=== PATIENT | male | born 1985 | race Caucasian/White ===

== ENCOUNTER 2019-07-05 02:22 | Inpatient (IN) | payer OTHER ==
[~2019-07-05] VITALS: Ht 182.9 cm; Wt 65.8 kg
[~2019-07-05 02:22] MED LIST: HALO2 PO; INSULANPEN SC; Novolog100 UNIT/1 SQ
[2019-07-05] MEDS ORDERED: GABA300 PO (02:40)
[2019-07-05 03:39] LABS: BASOPHILS ABSOLUTE AUTO 0.03 K/mm3 (0.00-0.23); BASOPHILS PERCENT AUTO 0 % (0-2); EOSINOPHILS ABSOLUTE AUTO 0.06 K/mm3 (0.00-0.68); EOSINOPHILS PERCENT AUTO 1 % (0-6); Hematocrit 32.2 % (37.0-53.0); Hemoglobin 11.4 g/dL (13.5-17.5); IMMATURE GRAN ABSOLUTE AUTO 0.06 K/mm3 (0.00-0.10); IMMATURE GRAN PERCENT AUTO 1 % (0-1); LYMPHOCYTES ABSOLUTE AUTO 1.64 K/mm3 (0.84-5.20); LYMPHOCYTES PERCENT AUTO 17 % (21-46); MONOCYTES PERCENT AUTO 11 % (4-13); Mean Corpuscular HGB 30.6 pg (26.0-34.0); Mean Corpuscular HGB Conc 35.4 g/dL (31.5-36.5); Mean Corpuscular Volume 86 fL (80-100); Mean Platelet Volume 11.2 fL (9.1-12.4); NEUTROPHILS ABSOLUTE AUTO 6.67 K/mm3 (1.96-9.15); NEUTROPHILS PERCENT AUTO 71 % (41-73); Platelet Count 217 K/mm3 (150-400); RDW Coefficient Variation 11.2 % (11.7-14.2); RDW Standard Deviation 35.4 fL (35.1-46.3); Red Blood Cell Count 3.73 M/mm3 (4.30-5.90); White Blood Cell Count 9.46 K/mm3 (4.00-11.30)
[2019-07-05 04:02] LABS: Alanine Aminotransfer (ALT/SGP 41 U/L (12-78); Albumin, Blood 2.5 g/dL (3.4-5.0); Albumin/Globulin Ratio 0.7 (0.8-1.8); Alk Phos 200 U/L (50-136); Anion Gap 9 mmol/L (6-16); Aspartate Aminotrans (AST/SGOT 22 U/L (12-37); Bilirubin, Total 0.5 mg/dL (0.1-1.0); Blood Urea Nitrogen 23 mg/dL (8-24); Bun/Creatinine Ratio 32.1 (12.0-20.0); CO2, Blood 30 mmol/L (21-32); Calcium, Blood 8.5 mg/dL (8.5-10.1); Chloride, Blood 85 mmol/L (98-108); Creatinine, Blood 0.72 mg/dL (0.60-1.20); Globulin, Blood 3.8 g/dL (2.2-4.0); Glomerular Filtration Rate >60 (60-); Glucose, Blood 846 mg/dL (70-99); Potassium, Blood 4.3 mmol/L (3.5-5.5); Sodium, Blood 124 mmol/L (136-145); Total Protein, Blood 6.3 g/dL (6.4-8.2)
[2019-07-05] MEDS ORDERED: PROBIOTIC1 EAC6 PO (06:29)
[2019-07-05] MEDS ORDERED: CENTRUM SILVER1 EAC2 PO (06:30)
[2019-07-05] MEDS ORDERED: BIOFLEX TABLET1 EACH PO (06:30)
--- NOTE | 2019-07-05 07:15 | NUR ---
PT ARRIVES TO ROOM ICU 15 FROM ED AT 0615. PT HAD APPROX 400 POINT DROP IN BLOOD GLUCOSE WHILE IN ED AFTER RECEIVING 10 UNITS REGULAR INSULIN IV. REQUESTED THAT EMERGENCY DEPARTMENT HOLD INSULIN DRIP UNTIL PT ARRIVED TO FLOOR TO BE EVAULATED. RECHECK OF BLOOD GLUCOSE REVEALS 276 WHICH IS DOWN OVER 100 POINTS SINCE ED. HAVE CONTINUED TO HOLD INSULIN DRIP, AND HAVE REPORTED TO ONCOMING RNASHLEY.
--- NOTE | 2019-07-05 08:15 | NUR ---
ASSESSMENT- PT AWAKE, ALERT, COOPERATIVE. QUESTIONS REGARDING PLAN OF CARE, EXPLAINED POC. NOTIFIED DR. MARTINEZ OF [facility]-WILL BE HERE. PT STATES LEFT FOOT ITCHY AND PAINFUL. SMALL PUNTURE AREA LEFT SOEL OF FOOT UNDER SMALL TOE. FOOT REDDENED, TOES SWOLLEN AND SWELLING UP TO CARBALLO. FOOT WARM TO TOUCH UP TO KNEE. NS AT 75 CC/HR. PIV X 2 INTACT. LUNGS CLEAR, NSR. BP STABLE.
--- NOTE | 2019-07-05 09:41 | NUR ---
DR. MARTINEZ HERE-SEE ORDERS. TRANSFER TO MEDICAL STATUS. LR AT 250 CC/HR. PAIN RX GIVEN FOR C/O PAIN LEFT FOOT, ELEVATED ON BLANKETS. EATING
--- NOTE | 2019-07-05 10:22 | NUR ---
BLOOD SUGAR 296. STATES WOULD NOT WANT COVERAGE NOW SINCE BLOOD SUGAR HAD DROPPED SO MUCH THIS MORNING. WILL RECHECK AGAIN BEFORE LUNCH. PT RESTING, STATES PAIN LESS IN FOOT. CONSULT CALLED IN
[2019-07-05 13:12] LABS: Adenovirus Not Detected (NOT DETECT); Coronavirus 229E Not Detected (NOT DETECT); Coronavirus HKU1 Not Detected (NOT DETECT)
[2019-07-05 13:13] LABS: Bordetella pertussis Not Detected (NOT DETECT); Chlamydophila pneumoniae Not Detected (NOT DETECT); Coronavirus NL63 Not Detected (NOT DETECT); Coronavirus OC43 Not Detected (NOT DETECT); Human Metapneumovirus Not Detected (NOT DETECT); Human Rhinovirus/Enterovirus Detected (NOT DETECT); Influenza A Not Detected (NOT DETECT); Influenza A/2009-H1 Not Detected (NOT DETECT); Influenza A/H1 Not Detected (NOT DETECT); Influenza A/H3 Not Detected (NOT DETECT); Influenza B Not Detected (NOT DETECT); Mycoplasma pneumoniae Not Detected (NOT DETECT); Parainfluenza Virus 1 Not Detected (NOT DETECT); Parainfluenza Virus 2 Not Detected (NOT DETECT); Parainfluenza Virus 3 Not Detected (NOT DETECT); Parainfluenza Virus 4 Not Detected (NOT DETECT); Respiratory Syncytial Virus Not Detected (NOT DETECT)
[2019-07-05 13:20] LABS: Anion Gap 4 mmol/L (6-16); Blood Urea Nitrogen 19 mg/dL (8-24); Bun/Creatinine Ratio 27.1 (12.0-20.0); CO2, Blood 29 mmol/L (21-32); Calcium, Blood 7.8 mg/dL (8.5-10.1); Chloride, Blood 98 mmol/L (98-108); Glomerular Filtration Rate >60 (60-); Glucose, Blood 416 mg/dL (70-99); Sodium, Blood 131 mmol/L (136-145)
--- NOTE | 2019-07-05 15:00 | NUR ---
DR. SAMS AT BEDSIDE, I/D DONE ON LEFT FOOT, PT TOLERATED WELL. CULTURE SENT, SMALL AMOUNT PUS. CONTINUE IVF AT 150 CC/HR
--- NOTE | 2019-07-05 17:45 | NUR ---
PT MOVING IN BED WITHOUT PROBLEMS. C/O SORE LEFT LEG, ICE FOR COMFORT, ELEVATED ON PILLOW. DRSG INTACT. BLOOD SUGAR ELEVATED, STATES ONLY WANTED 8 UNITS INSULIN FOR COVERAGE-STATES EATING DIFFERENT HERE AND IS AFRAID BLOOD SUGAR WILL DROP TOO MUCH. ATE 100% DINNER. CALL TO DR. MARTINEZ
--- NOTE | 2019-07-05 17:49 | NUR ---
DR. MARTINEZ CALLED BACK-UPDATED. OK TO GIVE ONLY 8 UNITS INSULIN AND RECHECK AT HS
--- NOTE | 2019-07-05 21:30 | NUR ---
PT RESTING IN BED. A/O X4. DENIES PAIN JUST C/O PRESSURE ON L FOOT AND UNCOMFORTABLE BECAUSE HE CAN'T STRETCH TOES OUT DUE TO DRESSING. ALSO STATES IT FEELS LIKE THE GAUZE DRESSING IS STUCK TO HIS FOOT AND IS UNCOMFORTABLE. PT HAD I&D OF BOTTOM OF L FOOT TODAY. TOOK DRESSING DOWN AND GAUZE WAS STUCK TO FOOT. PLACED PETROLEUM GAUZE OVER SITE THEN WRAPPED WITH KERLEX AND COBAN. PT STATES IT FEELS MUCH BETTER NOW. NO OTHER REQUESTS.
[2019-07-06 03:58] LABS: BASOPHILS ABSOLUTE AUTO 0.03 K/mm3 (0.00-0.23); BASOPHILS PERCENT AUTO 0 % (0-2); EOSINOPHILS ABSOLUTE AUTO 0.09 K/mm3 (0.00-0.68); EOSINOPHILS PERCENT AUTO 1 % (0-6); Hematocrit 33.4 % (37.0-53.0); Hemoglobin 11.7 g/dL (13.5-17.5); IMMATURE GRAN ABSOLUTE AUTO 0.07 K/mm3 (0.00-0.10); IMMATURE GRAN PERCENT AUTO 1 % (0-1); LYMPHOCYTES ABSOLUTE AUTO 2.07 K/mm3 (0.84-5.20); LYMPHOCYTES PERCENT AUTO 21 % (21-46); MONOCYTES ABSOLUTE AUTO 1.04 K/mm3 (0.16-1.47); MONOCYTES PERCENT AUTO 11 % (4-13); Mean Corpuscular HGB 30.2 pg (26.0-34.0); Mean Corpuscular Volume 86 fL (80-100); Mean Platelet Volume 10.7 fL (9.1-12.4); NEUTROPHILS ABSOLUTE AUTO 6.62 K/mm3 (1.96-9.15); NEUTROPHILS PERCENT AUTO 67 % (41-73); Platelet Count 249 K/mm3 (150-400); RDW Coefficient Variation 11.2 % (11.7-14.2); RDW Standard Deviation 35.1 fL (35.1-46.3); Red Blood Cell Count 3.88 M/mm3 (4.30-5.90); White Blood Cell Count 9.92 K/mm3 (4.00-11.30)
[2019-07-06 04:16] LABS: Alanine Aminotransfer (ALT/SGP 25 U/L (12-78); Albumin, Blood 2.2 g/dL (3.4-5.0); Albumin/Globulin Ratio 0.6 (0.8-1.8); Alk Phos 130 U/L (50-136); Anion Gap 4 mmol/L (6-16); Aspartate Aminotrans (AST/SGOT 17 U/L (12-37); Bilirubin, Total 0.2 mg/dL (0.1-1.0); Blood Urea Nitrogen 16 mg/dL (8-24); CO2, Blood 30 mmol/L (21-32); Calcium, Blood 8.6 mg/dL (8.5-10.1); Chloride, Blood 102 mmol/L (98-108); Creatinine, Blood 0.84 mg/dL (0.60-1.20); Globulin, Blood 3.9 g/dL (2.2-4.0); Glomerular Filtration Rate >60 (60-); Glucose, Blood 137 mg/dL (70-99); Phosphorus, Blood 3.1 mg/dL (2.5-4.9); Potassium, Blood 3.9 mmol/L (3.5-5.5); Sodium, Blood 136 mmol/L (136-145); Total Protein, Blood 6.1 g/dL (6.4-8.2)
--- NOTE | 2019-07-06 06:00 | NUR ---
PT RESTING IN BED. SLEPT MOST OF THE NIGHT. REDRESSED FOOT WOUND THIS AM DUE TO PT KICKING DRESSING OFF IN SLEEP. NO COMPLAINTS. CALL LIGHT IN REACH.
--- NOTE | 2019-07-06 07:40 | NUR ---
ASSUMED CARE AT 0700. REPORT FROM RAYRAY PAYAN. PT RESTING IN BED. WAKES c VERBAL STIMULI. C/O LEFT FOOT PAIN. DRESSING REMOVED. PT REPORTS PAIN TO 4TH DIGIT, LEFT FOOT. PACKING TO BASE OF 5TH DIGIT. PETROLEUM DRESSING, KERLEX PLACED. LATERAL FOOT RED SWOLLEN. STATES PAIN 01/01. VSS. WILL CONTINUE TO MONITOR.
--- NOTE | 2019-07-06 11:53 | NUR ---
Provided life review, companionship, spiritual guidance, empathic listening ang prayer. Patient responds well and shows signs of an elevated mood.
--- NOTE | 2019-07-06 17:08 | NUR ---
SHIFT SUMMARY STATUS CHANGE TO [facility] s TELE THIS SHIFT. DRESSING AND PACKING REMOVED FOR SHOWER. INCREASED SWELLING AND REDNESS NOTED, BOUNDARIES MARKED. PT REPORTS INCREASED PAIN. DR VALENCIA NOTIFIED. CAME IN TO SEE PT. MRI ORDERED, RECOMMENDED ANTIBIOTIC CHANGE TO VANCO, DR JHA NOTIFIED AND ORDER OBTAINED. ALSO REQUESTING PACKING TO BE REPLACED AFTER MRI. DR VALENCIA STATED THAT HE COULD BE CONTACTED BY PHONE TOMORROW AND IN NECESSARY, DR TOLEDO AGREED TO COME SEE PT. DR VALENCIA ASKED THAT WE NOTIFY HIM FIRST. NO INSULIN COVERAGE NEEDED THIS SHIFT. PT HAS BEEN GETTING UP AND VOIDING IN ROOM INDEPENDENTLY. REPORT TO ONCOMING NURSE.
--- NOTE | 2019-07-06 18:19 | NUR ---
PT TRANSFERED. PT TRANSFERED TO 342 AT 1815. PT IN STABLE CONDITION WITH VSS. PT GIVEN CALL LIGHT & ORIENTED TO ROOM. NO COMPLAINTS OF PAIN AT THIS TIME. WILL CONTINUE TO MONITOR UNILL TURNOVER IS COMPLETE.
--- NOTE | 2019-07-07 03:34 | NUR ---
SHIFT SUMMARY PATIENT HAD NO ACUTE CHANGES OBSERVED. AXOX 4 AND INDEPENDENT IN ROOM. PIVS REMAINS INTACT. LR INFUSING AT 150 mL/HR. IV ABXS INFUSED. VSS/AFEBRILE. DENIES PAIN, SOB, AND N/V. CBG 330 AND HUMALOG AND LANTUS GIVEN PER EMAR. PATIENT REPORTS SWELLING HAS GONE DOWN ON LEFT LOWER EXTREMITY. REDNESS NOW INSIDE SHARPIE BORDER DANG. COOPERATIVE WITH CARE. CALL LIGHT IN REACH. BED IN LOWEST POSITION. WILL CONTINUE TO MONITOR UNTIL DAY SHIFT NURSE ASSUMES CARE.
[2019-07-07 05:43] LABS: BASOPHILS ABSOLUTE AUTO 0.05 K/mm3 (0.00-0.23); BASOPHILS PERCENT AUTO 1 % (0-2); EOSINOPHILS PERCENT AUTO 1 % (0-6); Hematocrit 35.8 % (37.0-53.0); Hemoglobin 12.7 g/dL (13.5-17.5); IMMATURE GRAN ABSOLUTE AUTO 0.08 K/mm3 (0.00-0.10); IMMATURE GRAN PERCENT AUTO 1 % (0-1); LYMPHOCYTES ABSOLUTE AUTO 1.94 K/mm3 (0.84-5.20); LYMPHOCYTES PERCENT AUTO 28 % (21-46); MONOCYTES ABSOLUTE AUTO 0.67 K/mm3 (0.16-1.47); MONOCYTES PERCENT AUTO 10 % (4-13); Mean Corpuscular HGB Conc 35.5 g/dL (31.5-36.5); Mean Corpuscular Volume 85 fL (80-100); Mean Platelet Volume 10.3 fL (9.1-12.4); NEUTROPHILS ABSOLUTE AUTO 4.15 K/mm3 (1.96-9.15); NEUTROPHILS PERCENT AUTO 59 % (41-73); Platelet Count 214 K/mm3 (150-400); RDW Coefficient Variation 11.2 % (11.7-14.2); RDW Standard Deviation 34.5 fL (35.1-46.3); Red Blood Cell Count 4.23 M/mm3 (4.30-5.90); White Blood Cell Count 6.99 K/mm3 (4.00-11.30)
[2019-07-07 05:56] LABS: Anion Gap 9 mmol/L (6-16); Blood Urea Nitrogen 16 mg/dL (8-24); Bun/Creatinine Ratio 25.7 (12.0-20.0); CO2, Blood 27 mmol/L (21-32); Calcium, Blood 8.7 mg/dL (8.5-10.1); Chloride, Blood 106 mmol/L (98-108); Creatinine, Blood 0.62 mg/dL (0.60-1.20); Glomerular Filtration Rate >60 (60-); Glucose, Blood 106 mg/dL (70-99); Potassium, Blood 3.8 mmol/L (3.5-5.5); Sodium, Blood 142 mmol/L (136-145)
--- NOTE | 2019-07-07 12:54 | NUR ---
NOTIFIED HTN AND NOT ON ANY MEDS AT HOME. APRESOLINE W/NO PARAMETERS. CHANGE APRESOLINE TO GIVE IF SYS>140 AND GIVE NORVASC 5 MG QD, DOSE NOW
--- NOTE | 2019-07-07 18:04 | NUR ---
ALERT. ORIENTED. INDEPENDENT IN ROOM. LEFT LATERAL FOOT CLEANED (NO PACKING PLACED NO HOLE TO PLACE IT IN) XEROFORM, KERLIX, COBAN AND TUBEX PLACED. HAS NOT NEEDED ANY PAIN MEDS TODAY. UNLABORED RESPIRATIONS. COOPERATIVE. PLEASANT. IV'S X 2 PATENT. REDNESS TO FOOT DOES NOT GO BEYOND MARKED AREA. ABLE TO MAKE NEEDS KNOWN. BED IN LOW POSITION. CALL LIGHT WITHIN REACH. TM.
--- NOTE | 2019-07-07 22:13 | NUR ---
PATIENT OUT OF ROOM TO WALK HALLWAYS. AXOX 4 INDEPENDENT.
--- NOTE | 2019-07-08 03:33 | NUR ---
SHIFT SUMMARY PATIENT HAD NO ACUTE CHANGES OBSERVED. AXOX 4 AND INDEPENDENT AND WALKED HALLS THIS SHIFT. DENIES PAIN, SOB, AND N/V. VSS/AFEBRILE. PIVS REMAIN INTACT. IV ABXS INFUSED. CBG 242. REDNESS TO LEFT FOOT REMAINS INSIDE MARKED SHARPIE BORDER. COOPERATIVE WITH CARE. PLAYING MUSIC ON PHONE NOW. CALL LIGHT IN REACH. BED IN LOWEST POSITION. WILL CONTINUE TO MONITOR UNTIL DAY SHIFT NURSE ASSUME CARE.
[2019-07-08] MEDS ORDERED: CEPH500 PO (14:22)
[2019-07-08] MEDS ORDERED: NOVOLOG FL100 UNIT/1 SC (14:23)
--- NOTE | 2019-07-08 15:10 | NUR ---
DISCHARGE SUMMARY PATIENT IS PLEASANT, ALERT AND ORIENTED. IVS REMOVED. ALL QUESTIONS ANSWERED.
== END 2019-07-08 14:37 | disposition home or self-care (01) | DRG 872 ==
LOC: ER 02:22 → ICUW 02:23 → ERHOLD 02:23 → ICUW 05:30 → MEDS 07-06 18:08
PROVIDERS: Emergency Medicine; Hospitalist; Internal Medicine; ADMIT Internal Medicine
DX: A41.01 Sepsis due to Methicillin susceptible Staphylococcus aureus (principal); E87.1 Hypo-osmolality and hyponatremia; L03.116 Cellulitis of left lower limb; E10.65 Type 1 diabetes mellitus with hyperglycemia; R05 Cough; B97.89 Other viral agents as the cause of diseases classified elsewhere; F17.210 Nicotine dependence, cigarettes, uncomplicated; Z79.4 Long term (current) use of insulin; Z86.73 Personal history of transient ischemic attack (TIA), and cerebral infarction without residual deficits
CPT/HCPCS: 0099U; 36415; 71046; 73620; 73718; 80048; 80053; 82947; 83605; 84100; 84145; 85025; 87040; 87070; 87075; 87077; 87147; 87186; 87205; 90686; 96361; 96365; 96375; 96376; 99285-25; A9270; A9270-GY; G0008; G0378; J0690; J1170; J1650; J1815; J2405; J2543; J3370; J7030; J7050; J7120

== ENCOUNTER 2019-07-30 10:24 | Emergency (ER) | payer OTHER ==
[~2019-07-30] VITALS: Ht 182.9 cm; Wt 67.1 kg
[~2019-07-30 10:24] MED LIST changes: +BIOFLEX TABLET1 EACH PO; +CENTRUM SILVER1 EAC2 PO; +CEPH500 PO; +GABA300 PO; +NOVOLOG FL100 UNIT/1 SC; +PROBIOTIC1 EAC6 PO
[2019-07-30 11:02] LABS: Source, Urine Clean Catch
[2019-07-30 11:05] LABS: Bilirubin, Urine Neg (Neg); Blood, Urine 3+ (Neg); Glucose Qualitative, Urine 4+ (Neg); Ketones, Urine 2+ (Neg); Leukocyte Esterase, Urine Neg (Neg); Nitrite, Urine Neg (Neg); Protein, Urine 3+ (Neg); Urobilinogen, Urine NORM (Normal)
[2019-07-30] MEDS ORDERED: PANT40 PO (11:07)
[2019-07-30 11:23] LABS: BASOPHILS ABSOLUTE AUTO 0.06 K/mm3 (0.00-0.23); BASOPHILS PERCENT AUTO 1 % (0-2); EOSINOPHILS ABSOLUTE AUTO 0.07 K/mm3 (0.00-0.68); EOSINOPHILS PERCENT AUTO 1 % (0-6); Hematocrit 34.9 % (37.0-53.0); Hemoglobin 12.4 g/dL (13.5-17.5); IMMATURE GRAN ABSOLUTE AUTO 0.05 K/mm3 (0.00-0.10); IMMATURE GRAN PERCENT AUTO 1 % (0-1); LYMPHOCYTES ABSOLUTE AUTO 2.42 K/mm3 (0.84-5.20); LYMPHOCYTES PERCENT AUTO 28 % (21-46); MONOCYTES ABSOLUTE AUTO 0.86 K/mm3 (0.16-1.47); MONOCYTES PERCENT AUTO 10 % (4-13); Mean Corpuscular HGB Conc 35.5 g/dL (31.5-36.5); Mean Corpuscular Volume 84 fL (80-100); Mean Platelet Volume 10.2 fL (9.1-12.4); NEUTROPHILS ABSOLUTE AUTO 5.15 K/mm3 (1.96-9.15); NEUTROPHILS PERCENT AUTO 60 % (41-73); Platelet Count 305 K/mm3 (150-400); RDW Coefficient Variation 11.5 % (11.7-14.2); RDW Standard Deviation 35.2 fL (35.1-46.3); Red Blood Cell Count 4.14 M/mm3 (4.30-5.90); White Blood Cell Count 8.61 K/mm3 (4.00-11.30)
[2019-07-30 11:34] LABS: Appearance, Urine Clear (Clear); Color, Urine Yellow (P-Yellow)
[2019-07-30 11:36] LABS: Alanine Aminotransfer (ALT/SGP 36 U/L (12-78); Albumin, Blood 2.6 g/dL (3.4-5.0); Albumin/Globulin Ratio 0.5 (0.8-1.8); Alk Phos 169 U/L (50-136); Anion Gap 9 mmol/L (6-16); Aspartate Aminotrans (AST/SGOT 23 U/L (12-37); Bilirubin, Total 0.3 mg/dL (0.1-1.0); Blood Urea Nitrogen 17 mg/dL (8-24); Bun/Creatinine Ratio 20.4 (12.0-20.0); CO2, Blood 30 mmol/L (21-32); Calcium, Blood 9.2 mg/dL (8.5-10.1); Chloride, Blood 93 mmol/L (98-108); Creatinine, Blood 0.84 mg/dL (0.60-1.20); Globulin, Blood 4.9 g/dL (2.2-4.0); Glomerular Filtration Rate >60 (60-); Glucose, Blood 446 mg/dL (70-99); Sodium, Blood 132 mmol/L (136-145); Total Protein, Blood 7.5 g/dL (6.4-8.2)
[2019-07-30 11:36] LABS: Bacteria Not Seen /hpf; Squamous Epithelial Cells Not Seen /hpf (Few); White Blood Cells, Urine 0-2 /hpf (0-5)
[2019-07-30] MEDS ORDERED: Keflex500 MG PO (14:55)
== END 2019-07-30 15:38 | disposition home or self-care (01) ==
LOC: ER 10:24
PROVIDERS: Emergency Medicine
DX: L03.116 Cellulitis of left lower limb (principal); E10.65 Type 1 diabetes mellitus with hyperglycemia; F17.210 Nicotine dependence, cigarettes, uncomplicated; Z79.899 Other long term (current) drug therapy
CPT/HCPCS: 36415; 73630; 80053; 81001; 82947; 85025; 96365; 99283-25; J7030